=== PATIENT | female | born 1995 | race African-American/Black ===

== ENCOUNTER 2018-11-26 18:19 | Emergency (ER) | payer OTHER ==
[2018-11-26 18:37] VITALS: BP 154/88; PULSE 88; TEMP 98.7; BMI 41.9
--- NOTE | 2018-11-26 18:39 | PDOC ---
Rapid Medical Evaluation Chief Complaint: Chest Pain Time Seen by Provider: 11/26/18 18:37 Medical Evaluation: Allergies Allergy/AdvReac Type Severity Reaction Status Date / Time aspirin AdvReac Verified 11/26/18 18:35 Vital Signs Temp Pulse Resp BP Pulse Ox 98.7 F 88 18 154/88 100 11/26/18 18:35 11/26/18 18:35 11/26/18 18:35 11/26/18 18:35 11/26/18 18:35 11/26/18 18:38 23 year old with chest pain for a long time now worse PE; patient alert ox3 A: chest pain P: EKG patient to the ER for further management of care. Discharge Disposition - Diagnosis Chest pain Qualifiers: Chest pain type: unspecified Qualified Code(s): R07.9 - Chest pain, unspecified - Referrals - Patient Instructions - Post Discharge Activity
--- NOTE | 2018-11-26 21:28 | PDOC ---
History of Present Illness - General Chief Complaint: Chest Pain Stated Complaint: CHEST PAIN Time Seen by Provider: 11/26/18 18:37 History Source: Patient Exam Limitations: No Limitations - History of Present Illness Initial Comments: 11/26/18 21:22 HISTORY OF PRESENT ILLNESS: This is a 23-year-old woman denies medical history presents emergency department for evaluation of chest pain for "many years." Attempts to clarify revealed patient has been having similar pain consistently for the past 5 years. Patient reports the pain is 5/10 noted to be midsternal which she describes as a sharp pressure sensation. There's been no change in her pain over this time. Patient denies shortness of breath, difficulty breathing, nausea, vomiting. Patient reports she has not sought care for this until today because she was "tired of feeling the pain." No recent travel or sick contacts. PAST MEDICAL HISTORY: Denies past medical history SURGICAL HISTORY: Denies ALLERGIES: ASA REVIEW OF SYSTEMS General/Constitutional: Denies fever or chills. Denies weakness, weight change. HEENT: Denies change in vision. Denies ear pain or discharge. Denies sore throat. Cardiovascular: see HPI Respiratory: Denies cough, wheezing, or hemoptysis. Gastrointestinal: Denies nausea, vomiting, diarrhea or constipation. Denies rectal bleeding. Genitourinary: Denies dysuria, frequency, or change in urination. Musculoskeletal: Denies joint or muscle swelling or pain. Denies neck or back pain. Skin and breasts: Denies rash or easy bruising. Neurologic: Denies headache, vertigo, loss of consciousness, or loss of sensation. Psychiatric: Denies depression or anxiety. Endocrine: Denies increased thirst. Denies abnormal weight change. Hematologic/Lymphatic: Denies anemia, easy bleeding, or history of blood clots. Allergic/Immunologic: Denies hives or skin allergy. Denies latex allergy. PHYSICAL EXAM General Appearance: Well-appearing, appropriately dressed. No apparent distress , no intoxication. HEENT: EOMI, PERRLA, normal ENT inspection, normal voice, TMs normal, pharynx normal. No conjunctival pallor. No photophobia, scleral icterus. Neck: Supple. Trachea midline. No tenderness, rigidity, carotid bruit, stridor , lymphadenopathy, or thyromegaly. Respiratory/Chest: Lungs CTAB. No shortness of breath, respiratory distress, accessory muscle use. No crackles, rales, rhonchi, stridor, wheezing, dullness. Chest TTP over sternum. Cardiovascular: RRR. S1, S2. No JVD, murmur, bradycardia, tachycardia. Vascular Pulses: Dorsalis-Pedis (R): 2+, Dorsalis-Pedis (L): 2+ Gastrointestinal/Abdominal: Normal bowel sounds. Abdomen soft, non-distended. No tenderness or rebound tenderness. No organomegaly, pulsatile mass, guarding, hernia, hepatomegaly, splenomegaly. Past History - Past Medical History Allergies/Adverse Reactions: Allergies Allergy/AdvReac Type Severity Reaction Status Date / Time aspirin AdvReac Verified 11/26/18 18:35 Home Medications: Ambulatory Orders NK [No Known Home Medication] 11/26/18 Anemia: Yes COPD: No - Immunization History Immunization Up to Date: Yes - Suicide/Smoking/Psychosocial Hx Smoking History: Current some day smoker Information on smoking cessation initiated: No Hx Alcohol Use: No Drug/Substance Use Hx: No *Physical Exam - Vital Signs Last Vital Signs Temp Pulse Resp BP Pulse Ox 98.7 F 88 18 154/88 100 11/26/18 18:35 11/26/18 18:35 11/26/18 18:35 11/26/18 18:35 11/26/18 18:35 ED Treatment Course - ADDITIONAL ORDERS Additional order review: Laboratory Results 11/26/18 20:32 Urine HCG, Qual Negative - RADIOLOGY Radiology Studies Ordered: Category Date Time Status CHEST PA & LAT [RAD] Stat Radiology 11/26/18 20:05 Completed Medical Decision Making - Medical Decision Making 11/26/18 21:26 A/P: 23-year-old woman with midsternal chest pain for 5 years Tender to palpation over the sternum PERC-0 EKG is interpreted by me: Sinus rhythm with rate of 85. Normal intervals present. Normal axis. No ST changes present. Chest x-rays read by me: Cardec silhouette is within normal limits. Angles clear. No focal infiltrates or consolidations noted. I will discharge the patient home to follow-up with her primary doctor 11/26/18 21:28 *DC/Admit/Observation/Transfer Diagnosis at time of Disposition: Chest pain Qualifiers: Chest pain type: unspecified Qualified Code(s): R07.9 - Chest pain, unspecified - Discharge Dispostion Disposition: HOME Condition at time of disposition: Stable Decision to Admit order: No - Referrals Referrals: Heike Salinas MD [Primary Care Provider] - - Patient Instructions Printed Discharge Instructions: DI for Atypical Chest Pain Additional Instructions: Make an appointment with your doctor for reevaluation of symptoms within 1 week. Return to emergency department for any new or worsening symptoms. - Post Discharge Activity
--- NOTE | 2018-11-27 11:24 | EKG ---
Test Reason : Blood Pressure : / mmHG Vent. Rate : 085 BPM Atrial Rate : 085 BPM P-R Int : 148 ms QRS Dur : 086 ms QT Int : 356 ms P-R-T Axes : 059 034 021 degrees QTc Int : 423 ms NORMAL SINUS RHYTHM NONSPECIFIC T WAVE ABNORMALITY ABNORMAL ECG NO PREVIOUS ECGS AVAILABLE Confirmed by JETT BRAUN MD ([id number]) on 11/27/2018 11:24:22 AM Referred By: Confirmed By:JETT BRAUN MD
== END 2018-11-26 22:12 | disposition home or self-care (01) ==
LOC: JERFT 18:19
DX: R07.9 Chest pain, unspecified (principal)
CPT/HCPCS: 71046-TC-FY; 84703; 93005; 93010; 99281-25